=== PATIENT | male | born 1965 | race African-American/Black ===

== ENCOUNTER 2018-02-01 11:21 | Emergency (ER) | payer OTHER ==
[2018-02-01 11:49] VITALS: BP 151/82; PULSE 83; RESP 20; TEMP 98.5
[2018-02-01] MEDS ORDERED: ONDANSETRON 4 MG/2 ML VIAL IVP STA (12:31)
[2018-02-01] MEDS ORDERED: SODIUM CHLORIDE 0.9% 1,000 ML IV STA (12:31)
[2018-02-01] MEDS ORDERED: MORPHINE SULFATE 2 MG/ML SYRINGE IVP STA (12:31)
--- NOTE | 2018-02-01 13:24 | ED ---
Abdominal Pain HPI - General Chief Complaint: Abdominal Pain Stated Complaint: Abd Pain Time Seen by Provider: 02/01/18 11:56 Source: patient, RN notes reviewed Mode of arrival: ambulatory Limitations: no limitations - History of Present Illness Initial Comments: 52-year-old male presented to the emergency Department with chief complaint of abdominal pain. He's been having intermittent problems since morning. Patient denies any diarrhea, constipation, nausea, vomiting, dysuria, hematuria. 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 Patient did have 2 prior colostomies. Patient states that a reversal over 20 years ago. Patient denies any chest pain or shortness of breath. Denies any back pain no flank pain - Related Data Home Medications Medication Instructions Recorded Confirmed No Known Home Medications 02/01/18 02/01/18 Allergies Allergy/AdvReac Type Severity Reaction Status Date / Time tetracycline Allergy Rash/Hives Verified 02/01/18 12:26 ibuprofen [From Motrin] AdvReac Nausea & Verified 02/01/18 12:26 Vomiting Review of Systems ROS Statement: Those systems with pertinent positive or pertinent negative responses have been documented in the HPI. ROS Other: All systems not noted in ROS Statement are negative. Past Medical History Additional Past Medical History / Comment(s): hurshbrug History of Any Multi-Drug Resistant Organisms: None Reported Past Surgical History: Bowel Resection Additional Past Surgical History / Comment(s): abd surgery Past Psychological History: No Psychological Hx Reported Smoking Status: Current every day smoker Past Alcohol Use History: Occasional Past Drug Use History: None Reported General Exam Limitations: no limitations General appearance: alert, in no apparent distress Head exam: Present: atraumatic, normocephalic, normal inspection Respiratory exam: Present: normal lung sounds bilaterally. Absent: respiratory distress, wheezes, rales, rhonchi, stridor Cardiovascular Exam: Present: regular rate, normal rhythm, normal heart sounds. Absent: systolic murmur, diastolic murmur, rubs, gallop, clicks GI/Abdominal exam: Present: soft, tenderness (Mild diffuse), normal bowel sounds , other (Old surgical scars noted). Absent: distended, guarding, rebound, rigid Back exam: Absent: CVA tenderness (R), muscle spasm Course Vital Signs 02/01/18 11:46 Temperature 98.5 F Pulse Rate 83 Respiratory 20 Rate Blood Pressure 151/82 O2 Sat by Pulse 99 Oximetry Medical Decision Making - Medical Decision Making 52-year-old male present emergency Department for abdominal pain. Patient states that he has 3 work and cannot wait any longer. Patient will be discharged AMA. Disposition Clinical Impression: Abdominal pain Disposition: Left Against Medical Advice Condition: Stable Instructions: Abdominal Pain (ED) Referrals: None,Stated [Primary Care Provider] - 1-2 days
== END 2018-02-01 13:28 | disposition left against medical advice (07) ==
LOC: EC 11:21
DX: R10.9 Unspecified abdominal pain (principal); F17.200 Nicotine dependence, unspecified, uncomplicated; Z91.19 Patient's noncompliance with other medical treatment and regimen; Z88.1 Allergy status to other antibiotic agents; Z88.6 Allergy status to analgesic agent
CPT/HCPCS: 99283

== ENCOUNTER 2018-03-04 11:46 | Observation (INO) | payer OTHER ==
[2018-03-04] MEDS ORDERED: ASPIRIN 81 MG PO STA (12:01)
[2018-03-04] MEDS ORDERED: NITROGLYCERIN SL TABS 0.4 MG TAB SUBLINGUAL STA (12:02)
--- NOTE | 2018-03-04 12:09 | ED ---
Chest Pain HPI - General Source: patient, RN notes reviewed Mode of arrival: wheelchair Limitations: no limitations <Ozzie Nelson - Last Filed: 03/04/18 13:43> <Ross Parra - Last Filed: 03/04/18 13:45> - General Chief Complaint: Chest Pain Stated Complaint: CHEST PAIN Time Seen by Provider: 03/04/18 11:58 - History of Present Illness Initial Comments: 52-year-old male presents emergency Department chief, chest pain. Patient states pain started while at work. Patient states it does hurt slightly to move. Patient has an appointment shortness breath this ongoing secondary to some tobacco use. Patient denies any history of hyperlipidemia, hypertension, hyperlipidemia though does not go to physician a regular basis. He has no cardiac history. Patient denies any nausea, vomiting diarrhea constipation no URI symptoms. (Ozzie Nelson) - Related Data Home Medications Medication Instructions Recorded Confirmed No Known Home Medications 02/01/18 03/04/18 Allergies Allergy/AdvReac Type Severity Reaction Status Date / Time tetracycline Allergy Rash/Hives Verified 03/04/18 12:40 ibuprofen [From Motrin] AdvReac Nausea & Verified 03/04/18 12:40 Vomiting Review of Systems ROS Other: All systems not noted in ROS Statement are negative. <Ozzie Nelson - Last Filed: 03/04/18 13:43> ROS Other: All systems not noted in ROS Statement are negative. <Ross Parra - Last Filed: 03/04/18 13:45> ROS Statement: Those systems with pertinent positive or pertinent negative responses have been documented in the HPI. EKG Findings - EKG Comments: EKG Findings:: EKG performed at 12:19 normal sinus rhythm with a rate of 84 ND 170 QS 82 QT/QTC 354/418 <Ozzie Nelson - Last Filed: 03/04/18 13:43> Past Medical History Additional Past Medical History / Comment(s): hurshbrug History of Any Multi-Drug Resistant Organisms: None Reported Past Surgical History: Bowel Resection Additional Past Surgical History / Comment(s): abd surgery Past Psychological History: No Psychological Hx Reported Smoking Status: Current every day smoker Past Alcohol Use History: Occasional Past Drug Use History: None Reported <Ozzie Nelson - Last Filed: 03/04/18 13:43> General Exam Limitations: no limitations General appearance: alert, in no apparent distress Head exam: Present: atraumatic, normocephalic, normal inspection Eye exam: Present: normal appearance, PERRL, EOMI. Absent: scleral icterus, conjunctival injection, periorbital swelling ENT exam: Present: normal exam, mucous membranes moist Neck exam: Present: normal inspection, full ROM. Absent: tenderness, meningismus, lymphadenopathy Respiratory exam: Present: normal lung sounds bilaterally, chest wall tenderness (left anterior). Absent: respiratory distress, wheezes, rales, rhonchi, stridor Cardiovascular Exam: Present: regular rate, normal rhythm, normal heart sounds. Absent: systolic murmur, diastolic murmur, rubs, gallop, clicks GI/Abdominal exam: Present: soft, normal bowel sounds. Absent: distended, tenderness, guarding, rebound, rigid Skin exam: Present: warm, dry, intact, normal color. Absent: rash <Ozzie Nelson - Last Filed: 03/04/18 13:43> Course <Ozzie Nelson - Last Filed: 03/04/18 13:43> <Ross Parra - Last Filed: 03/04/18 13:45> Vital Signs 03/04/18 03/04/18 03/04/18 11:55 12:06 12:24 Temperature 98.2 F Pulse Rate 84 87 Pulse Rate [ 82 Supine] Respiratory 20 18 Rate Blood Pressure 137/81 141/90 O2 Sat by Pulse 99 100 Oximetry 03/04/18 13:00 Temperature Pulse Rate 96 Pulse Rate [ Supine] Respiratory 13 Rate Blood Pressure 141/90 O2 Sat by Pulse 100 Oximetry - Reevaluation(s) Reevaluation #1: 03/04/18 13:45 Patient was reevaluated by myself, Dr. Parra. Patient states he's had some chest discomfort this started while at work couple of hours ago. Patient is near symptom-free at this time. Labs and x-ray reviewed. EKG reviewed. Patient updated on results and plan. Case was discussed in detail with Dr. rogelio espino, who will admit for hospital call. Cardiology will be placed on consult ( Ross Parra) Disposition <Ozzie Nelson - Last Filed: 03/04/18 13:43> <Ross Parra - Last Filed: 03/04/18 13:45> Clinical Impression: Chest pain Disposition: ADMITTED IP TO THIS HOSP Condition: Stable Referrals: None,Stated [Primary Care Provider] - 1-2 days
[2018-03-04 12:46] LABS: Basophils % (A) 0 %; Eosinophils # (A) 0.2 k/uL (0-0.7); Eosinophils % (A) 2 %; HCT 46.1 % (39.0-53.0); HGB 15.9 gm/dL (13.0-17.5); Lymphocytes # (A) 2.1 k/uL (1.0-4.8); Lymphocytes % (A) 20 %; MCH 33.1 pg (25.0-35.0); MCHC 34.4 g/dL (31.0-37.0); MCV 96.1 fL (80.0-100.0); Mean Platelet Volume 7.5; Monocytes # (A) 0.6 k/uL (0-1.0); Monocytes % (A) 6 %; Neutrophils # (A) 7.1 k/uL (1.3-7.7); Neutrophils % (A) 70 %; Platelet Count 176 k/uL (150-450); RDW 13.2 % (11.5-15.5); WBC 10.2 k/uL (3.8-10.6)
[2018-03-04 12:49] LABS: INR 1.1 (<1.2); Partial Thromboplastin Time 24.4 sec (22.0-30.0); Prothrombin Time 10.7 sec (9.0-12.0)
--- NOTE | 2018-03-04 12:55 | XR ---
EXAMINATION TYPE: XR chest 2V DATE OF EXAM: 03/04/2018 COMPARISON: NONE HISTORY: Chest pain TECHNIQUE: Frontal and lateral views of the chest are obtained. FINDINGS: There is no focal air space opacity, pleural effusion, or pneumothorax seen. The cardiac silhouette size is within normal limits. The osseous structures are intact. Minimal multilevel dege nerative changes of the thoracic spine are seen. IMPRESSION: No acute cardiopulmonary process.
[2018-03-04 12:57] LABS: ALT 37 U/L (21-72); AST 37 U/L (17-59); Albumin 4.1 g/dL (3.5-5.0); Alkaline Phosphatase 74 U/L (38-126); Anion Gap 8 mmol/L; Blood Urea Nitrogen 15 mg/dL (9-20); Calcium 9.9 mg/dL (8.4-10.2); Carbon Dioxide 24 mmol/L (22-30); Chloride 106 mmol/L (98-107); Glucose 119 mg/dL (74-99); Lipase 77 U/L (23-300); Magnesium 1.8 mg/dL (1.6-2.3); Potassium 4.4 mmol/L (3.5-5.1); Sodium 138 mmol/L (137-145); Total Bilirubin 0.6 mg/dL (0.2-1.3); Total Protein 7.3 g/dL (6.3-8.2)
[2018-03-04 13:01] LABS: Creatine Kinase 408 U/L (55-170)
[2018-03-04 13:14] LABS: Creatine Kinase MB 2.9 ng/mL (0.0-2.4); Troponin I <0.012 ng/mL (0.000-0.034)
[2018-03-04] MEDS ORDERED: NITROGLYCERIN SL TABS 0.4 MG TAB SUBLINGUAL PRN (13:44)
[2018-03-04] MEDS ORDERED: HEPARIN SODIUM,PORCINE 5,000 UNIT/ML 1 ML VIAL IV ONE (13:44)
[2018-03-04] MEDS ORDERED: HEPARIN SOD,PORK IN 0.45% NACL 25,000 UNIT in 0.45% NACL 1 500ML.BAG IV SCH (13:45)
[2018-03-04] MEDS ORDERED: NALOXONE 0.4 MG/ML 1 ML VIAL IV PRN (15:36)
[2018-03-04] MEDS ORDERED: ONDANSETRON 4 MG/2 ML VIAL IVP PRN (15:36)
[2018-03-04] MEDS ORDERED: ACETAMINOPHEN TAB 325 MG TAB PO PRN (15:36)
[2018-03-04] MEDS ORDERED: HYDROcodone/APAP 5-325MG 1 EACH TAB PO PRN (15:36)
--- NOTE | 2018-03-04 15:48 | P.HPIM ---
History of Present Illness H&P Date: 03/04/18 Chief Complaint: chest pain Patient is a 52-year-old -[place] male with past medical history of Hirschsprung's disease and tobacco abuse who presented to the ER with complaints of chest pain. In the emergency department he underwent an extensive evaluation. Initial EKG showed normal sinus rhythm at a rate of [address]-T wave changes and normal intervals. An initial vital signs he was slightly hypertensive with a blood pressure 141/98. Initial laboratory analysis had a negative troponin but slightly elevated glucose at 119. He was given a dose of aspirin, Nitrol, and a dose of heparin. He is admitted to the observation unit for further monitoring and care. 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 This persisted until he came to the ER and got a dose of nitroglycerin. He describes the pain as retrosternal without radiation. It was associated with intermittent shortness of breath, no nausea, no diaphoresis , no numbness or tingling, no lightheadedness or dizziness, no racing heart. He has never had anything like this before. He has never seen a tax professional in the past. He has not had any stress test or cardiac catheterizations. He does not have a primary care physician currently. He does report that approximately 2 weeks ago he had a cold associated with nasal congestion and rhinorrhea. This has since resolved. He does not take any medications on a chronic basis. He does have a brother who passed myocardial infarction at age 38 however he had a history of cocaine abuse. Review of Systems Pertinent positives and negatives as discussed in HPI, a complete review of systems was performed and all other systems are negative. Past Medical History Additional Past Medical History / Comment(s): Hirschsprung's disease History of Any Multi-Drug Resistant Organisms: None Reported Past Surgical History: Bowel Resection Additional Past Surgical History / Comment(s): abd surgery Past Psychological History: No Psychological Hx Reported Smoking Status: Current every day smoker Past Alcohol Use History: Occasional Past Drug Use History: None Reported - Past Family History family Additional Family Medical History / Comment(s): He reports no family history of congestive heart failure, he had a brother who from myocardial infarction at age 38 however he was using cocaine., no history of [place] and parents or grandparents. Medications and Allergies Home Medications Medication Instructions Recorded Confirmed Type No Known Home Medications 02/01/18 03/04/18 History Allergies Allergy/AdvReac Type Severity Reaction Status Date / Time tetracycline Allergy Rash/Hives Verified 03/04/18 12:40 ibuprofen [From Motrin] AdvReac Nausea & Verified 03/04/18 12:40 Vomiting Physical Exam Osteopathic Statement: *. No significant issues noted on an osteopathic structural exam other than those noted in the History and Physical/Consult. Vitals: Vital Signs Temp Pulse Pulse Pulse Resp BP BP 03/04/18 14:31 97.9 F 66 18 147/78 03/04/18 13:00 96 13 141/90 03/04/18 12:24 87 18 141/90 03/04/18 12:06 82 03/04/18 11:55 98.2 F 84 20 137/81 Pulse Ox 03/04/18 14:31 97 03/04/18 13:00 100 03/04/18 12:24 100 03/04/18 12:06 03/04/18 11:55 99 Intake and Output 03/04/18 03/04/18 03/04/18 06:59 14:59 22:59 Other: Weight 76.657 kg General: non toxic, no distress, appears at stated age, normal weight Derm: no unusual rashes/lesions no unusual ecchymoses, warm, dry Head: atraumatic, normocephalic, symmetric Eyes: EOMI, no lid lag, anicteric sclera, pupils equal round reactive to light ENT: Nose and ears atraumatic, no thrush, no pharyngeal erythema Neck: No thyromegaly, no cervical lymphadenopathy, trachea midline, supple Mouth: no lip lesion, mucus membranes moist Cardiovascular: S1S2 reg, no murmur, positive posterior tibial pulse bilateral, no edema, capillary refill less than 2 seconds Lungs: CTA bilateral, no rhonchi, no rales , no accessory muscle use Abdominal: soft, nontender to palpation, no guarding, no appreciable organomegaly, normal bowel sounds Ext: no gross muscle atrophy, muscle strength 5 out of 5 in all 4 extremities grossly, no contractures, Neuro: CN II-XI grossly intact, light touch intact all 4 extremities, finger to nose within normal limits, Psych: Alert, oriented, appropriate affect Results CBC & Chem 7: 03/04/18 12:15 03/04/18 12:15 Labs: Abnormal Lab Results - Last 24 Hours (Table) 03/04/18 03/04/18 Range/Units 12:15 12:15 Glucose 119 H (74-99) mg/dL Total Creatine Kinase 408 H (55-170) U/L CK-MB (CK-2) 2.9 H (0.0-2.4) ng/mL Comments: EKG is reviewed by myself reveals normal sinus rhythm at a rate of 84, normal axis, normal intervals, and no significant ST-T wave changes Chest x-ray: report reviewed Thrombosis Risk Factor Assmnt - DVT/VTE Prophylaxis DVT/VTE Prophylaxis: Low risk, early ambulation encouraged Assessment and Plan Assessment: Chest pain -Aspirin, serial troponins, telemetry, nothing by mouth after midnight, consult cardiology -When necessary nitroglycerin and when necessary EKG for recurrent chest pain Tobacco abuse -Cessation encouraged -We will avoid nicotine replacement at this point in time Hyperglycemia - Check hemoglobin A1c DVT prophylaxis: SCDs Discussed with: Patient, nursing Anticipated discharge: [address]: Home A total of 45 minutes was spent on the care of this complex patient more than 50 % of the time was spent in counseling and care coordination.
[2018-03-04 17:55] LABS: Creatine Kinase 312 U/L (55-170)
[2018-03-04 18:08] LABS: Creatine Kinase MB 2.4 ng/mL (0.0-2.4); Troponin I <0.012 ng/mL (0.000-0.034)
[2018-03-05 00:34] LABS: Creatine Kinase 289 U/L (55-170)
[2018-03-05 00:47] LABS: Creatine Kinase MB 1.9 ng/mL (0.0-2.4); Troponin I <0.012 ng/mL (0.000-0.034)
[2018-03-05 07:50] VITALS: RESP 18
[2018-03-05] MEDS ORDERED: ASPIRIN 325 MG TAB PO SCH (09:00)
[2018-03-05 09:36] LABS: Mean Platelet Volume 7.4; Platelet Count 178 k/uL (150-450)
[2018-03-05 09:58] LABS: Cholesterol 177 mg/dL (<200); HDL Cholesterol 55 mg/dL (40-60); LDL Cholesterol,Calculated 111 mg/dL (0-99); Triglycerides 56 mg/dL (<150)
--- NOTE | 2018-03-05 11:00 | P.CRDCN ---
History of Present Illness History of present illness: Mr. Mijares is a pleasant 52-year-old -[place] male with no significant history. He smokes 2 cigars a day. He denies history of coronary artery disease, hypertension, dyslipidemia or diabetes mellitus. He has never seen a in classroom tutor for any reason. We've been asked to see him in consultation for chest pain. 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 There is no radiation to the arm, back, neck or jaw. He denies associated shortness of breath, dizziness, palpitations, nausea, vomiting or diaphoresis. The pain persisted for over an hour until coming to the emergency department. He was given sublingual nitroglycerin and the pain subsided. He has had no further symptoms of chest pain since admission. EKG reveals sinus mechanism with no acute ST or T wave abnormalities noted. Chest x-ray is negative for an acute cardiopulmonary process. Laboratory data reviewed, WBC 10.2, hemoglobin 15.9, platelets 178, sodium 138, potassium 4.4, magnesium 1.8, creatinine 1.08, cardiac enzymes negative 3, LDL 111, HDL 55. He takes no daily medications. At the time of my exam: CONSTITUTIONAL: Denies fever. Denies chills. EYES: Denies blurred vision. Denies vision changes. Denies eye pain. EARS, NOSE, MOUTH & THROAT: Denies headache. Denies sore throat. Denies ear pain. CARDIOVASCULAR: Denies chest pain. Denies shortness of breath. Denies orthopnea. Denies PND. Denies palpitations. RESPIRATORY: Denies cough. GASTROINTESTINAL: Denies abdominal pain. Denies diarrhea. Denies constipation. Denies nausea. Denies vomiting. MUSCULOSKELETAL: Denies myalgias. INTEGUMENTARY: Denies pruitis. Denies rash. NEUROLOGIC: Denies numbness. Denies tingling. Denies weakness. PSYCHIATRIC: Denies anxiety. Denies depression. ENDOCRINE: Denies fatigue. Denies weight change. Denies polydipsia. Denies polyurina. GENITOURINARY: Denies burning, hematuria or urgency with micturation. HEMATOLOGIC: Denies history of anemia. Denies bleeding. Blood pressure 126/76 heart rate 53 afebrile maintaining oxygen saturation on room air GENERAL: This is a 52-year-old -[place] male in no apparent distress at the time of my examination. HEENT: Head is atraumatic, normocephalic. Pupils are equal, round. Sclerae anicteric. Conjunctivae are clear. Mucous membranes of the mouth are moist. Neck is supple. There is no jugular venous distention. No carotid bruit is heard. LUNGS: Clear to auscultation no wheezes, rales or rhonchi. No chest wall tenderness is noted on palpation or with deep breathing. HEART: Regular rate and rhythm without murmurs, rubs or gallops. S1 and S2 heard. ABDOMEN: Soft, nontender. Bowel sounds are heard. No organomegaly noted. EXTREMITIES: No evidence of peripheral edema and no calf tenderness noted. VASCULAR: Radial and dorsalis pedis pulses palpated, no evidence of clubbing. NEUROLOGIC: Patient is awake, alert and oriented x3. ASSESSMENT Chest pain, atypical. An acute coronary event has been ruled out with no EKG evidence of ischemia and negative cardiac enzymes. PLAN An acute coronary event has been ruled out with no EKG evidence of ischemia and negative cardiac enzymes. Discontinue heparin infusion. Perform stress echocardiogram and doppler study to assess cardiac structure and function. If stress test is normal he is stable from a cardiac perspective. Cessation of cigar smoking recommended as well as lifestyle modifications for lowering of LDL cholesterol. Follow up with Dr. Lazcano in 2 weeks. Thank you kindly for this consultation. Nurse Practitioner note has been reviewed, I agree with a documented findings and plan of care. Patient was seen and examined. Past Medical History Additional Past Medical History / Comment(s): Hirschsprung's disease History of Any Multi-Drug Resistant Organisms: None Reported Past Surgical History: Bowel Resection Additional Past Surgical History / Comment(s): abd surgery Past Anesthesia/Blood Transfusion Reactions: No Reported Reaction Smoking Status: Current every day smoker - Past Family History Mother Family Medical History: Cancer Additional Family Medical History / Comment(s): Father Additional Family Medical History / Comment(s): -brain anuerysm family Additional Family Medical History / Comment(s): He reports no family history of congestive heart failure, he had a brother who from myocardial infarction at age 38 however he was using cocaine., no history of [place] and parents or grandparents. Medications and Allergies Home Medications Medication Instructions Recorded Confirmed Type No Known Home Medications 02/01/18 03/04/18 History Allergies Allergy/AdvReac Type Severity Reaction Status Date / Time tetracycline Allergy Rash/Hives Verified 03/04/18 12:40 ibuprofen [From Motrin] AdvReac Nausea & Verified 03/04/18 12:40 Vomiting Physical Exam Vitals: Vital Signs Temp Pulse Pulse Pulse Resp BP BP 03/05/18 08:00 53 L 18 03/05/18 07:25 97.9 F 53 L 18 126/76 03/05/18 03:58 16 03/05/18 03:52 97.7 F 66 16 143/80 03/05/18 00:00 98.4 F 71 16 129/79 03/04/18 23:19 16 03/04/18 20:00 98.3 F 81 16 151/73 03/04/18 16:24 03/04/18 14:31 97.9 F 66 18 147/78 03/04/18 13:00 96 13 141/90 03/04/18 12:24 87 18 141/90 03/04/18 12:06 82 03/04/18 11:55 98.2 F 84 20 137/81 Pulse Ox 03/05/18 08:00 03/05/18 07:25 100 03/05/18 03:58 03/05/18 03:52 100 03/05/18 00:00 100 03/04/18 23:19 03/04/18 20:00 99 03/04/18 16:24 98 03/04/18 14:31 97 03/04/18 13:00 100 03/04/18 12:24 100 03/04/18 12:06 03/04/18 11:55 99 Intake and Output 03/04/18 03/05/18 03/05/18 22:59 06:59 14:59 Intake Total 100 Balance 100 Intake: Oral 100 Other: Voiding Method Toilet Toilet Toilet # Voids 1 1 Results 03/05/18 08:58 03/04/18 12:15 Cardiac Enzymes 03/04/18 03/04/18 03/04/18 Range/Units 12:15 12:15 17:24 AST 37 (17-59) U/L CK-MB (CK-2) 2.9 H 2.4 (0.0-2.4) ng/mL Troponin I <0.012 <0.012 (0.000-0.034) ng/mL 03/04/18 Range/Units 23:40 AST (17-59) U/L CK-MB (CK-2) 1.9 (0.0-2.4) ng/mL Troponin I <0.012 (0.000-0.034) ng/mL Coagulation 03/04/18 Range/Units 12:15 PT 10.7 (9.0-12.0) sec APTT 24.4 (22.0-30.0) sec Lipids 03/05/18 Range/Units 08:58 Triglycerides 56 (<150) mg/dL Cholesterol 177 (<200) mg/dL HDL Cholesterol 55 (40-60) mg/dL CBC 03/04/18 03/05/18 Range/Units 12:15 08:58 WBC 10.2 (3.8-10.6) k/uL RBC 4.80 (4.30-5.90) m/uL Hgb 15.9 (13.0-17.5) gm/dL Hct 46.1 (39.0-53.0) % Plt Count 176 178 (150-450) k/uL Comprehensive Metabolic Panel 03/04/18 Range/Units 12:15 Sodium 138 (137-145) mmol/L Potassium 4.4 (3.5-5.1) mmol/L Chloride 106 (98-107) mmol/L Carbon Dioxide 24 (22-30) mmol/L BUN 15 (9-20) mg/dL Creatinine 1.08 (0.66-1.25) mg/dL Glucose 119 H (74-99) mg/dL Calcium 9.9 (8.4-10.2) mg/dL AST 37 (17-59) U/L ALT 37 (21-72) U/L Alkaline Phosphatase 74 (38-126) U/L Total Protein 7.3 (6.3-8.2) g/dL Albumin 4.1 (3.5-5.0) g/dL Current Medications Generic Name Dose Route Start Last Admin Trade Name Freq PRN Reason Stop Dose Admin Acetaminophen 650 mg 03/04/18 15:36 Tylenol Tab PO Q6HR PRN Mild Pain or Fever > 100.5 Hydrocodone Bitart/Acetaminophen 1 each 10/25/18 15:36 [place] 5-325 PO Q4HR PRN Moderate Pain Aspirin 325 mg 03/05/18 09:00 Aspirin PO DAILY JOSE C Naloxone HCl 0.2 mg 03/04/18 15:36 Narcan IV Q2M PRN Opioid Reversal Nitroglycerin 0.4 mg 03/04/18 13:44 Nitrostat SUBLINGUAL Q5M PRN Chest Pain Ondansetron HCl 4 mg 03/04/18 15:36 Zofran IVP Q8HR PRN Nausea And Vomiting Intake and Output 03/04/18 03/05/18 03/05/18 22:59 06:59 14:59 Intake Total 100 Balance 100 Intake: Oral 100 Other: Voiding Method Toilet Toilet Toilet # Voids 1 1 03/05/18 08:58 03/04/18 12:15
[2018-03-05 11:41] VITALS: BP 130/87; PULSE 60; TEMP 97.8
--- NOTE | 2018-03-05 18:21 | P.DS ---
Providers Date of admission: 03/04/18 13:46 Expected date of discharge: 03/05/18 Attending physician: Noelle Bowman DO Consults: 03/04/18 13:44 Consult Physician Urgent Consulting Provider: Vinny Cabezas Consult Reason/Comments: chest pain Do you want consulting provider notified?: Yes Primary care physician: Stated None Hospital Course: Discharge Diagnosis: Patient left AMA and this is a summary of his care Chest pain Tobacco abuse Hyperglycemia Hospital Course: Patient is a 52-year-old -[place] male with past medical history of Hirschsprung's disease and tobacco abuse who presented to the ER with complaints of chest pain. In the emergency department he underwent an extensive evaluation. Initial EKG showed normal sinus rhythm at a rate of [address]-T wave changes and normal intervals. An initial vital signs he was slightly hypertensive with a blood pressure 141/98. Initial laboratory analysis had a negative troponin but slightly elevated glucose at 119. He was given a dose of aspirin, Nitro, and a dose of heparin. He was admitted to the observation unit for further monitoring and care. His troponins remained negative. He was seen by cardiology on the morning of 03/05 and underwent an exercise stressed test. Unfortunately the patient left AGAINST MEDICAL ADVICE prior to results of the stress test being available, I was unable to sepak with the patient prior to him leaving. A total of 10 minutes of time were spent preparing this complex discharge summary . Pertinent Studies: Stress test- results pending Patient Condition at Discharge: Stable Plan - Discharge Summary Discharge Rx Participant: Yes New Discharge Prescriptions: No Action No Known Home Medications Discharge Medication List No Known Home Medications 02/01/18 [History] Follow up Appointment(s)/Referral(s): Josias Lazcano MD [STAFF PHYSICIAN] - 4 Weeks None,Stated [Primary Care Provider] - 1-2 days Discharge Disposition: Left Against Medical Advice
--- NOTE | 2018-03-05 18:37 | ECHOS ---
STRESS ECHOCARDIOGRAM INDICATIONS: Chest pain. MEDICATIONS: None. BASELINE HEART RATE: 71 BASELINE BLOOD PRESSURE: 131/73 MAXIMUM HEART RATE: 164 MAXIMUM BLOOD PRESSURE: 190/86 85% MPHR: 145 100% MPHR: 170 METS: 8.5 MAXIMUM STAGE REACHED: 3 TOTAL EXERCISE TIME: 7:00 CLINICAL INFORMATION: Patient exercised on a Lyndon protocol for 7 minutes, achieving a peak heart rate of 164 beats per minute. Normal blood pressure response to exercise. There was no ECG evidence for ischemia. No arrhythmias were noted. Baseline 2D echo images showed normal LV size and systolic function without segmental wall motion abnormalities. At peak exercise, there was excellent augmentation of overall LV contractility without development of any wall motion abnormalities. At recovery, regional and global LV systolic function remained normal. IMPRESSION: Average exercise capacity. No ECG or echocardiographic evidence for ischemia. The results were called to the nurse on the observation unit. MMSAMARAL / IJN: [id number] /
== END 2018-03-05 14:50 | disposition left against medical advice (07) ==
LOC: EC 11:46 → 1SOBS 13:46
PROVIDERS: ADMIT Internal Medicine; ATTEND Internal Medicine
DX: R07.2 Precordial pain (principal); R06.02 Shortness of breath; R73.9 Hyperglycemia, unspecified; Q43.1 Hirschsprung's disease; I10 Essential (primary) hypertension; Z53.21 Procedure and treatment not carried out due to patient leaving prior to being seen by health care provider; Z88.8 Allergy status to other drugs, medicaments and biological substances; Z88.1 Allergy status to other antibiotic agents; Z81.3 Family history of other psychoactive substance abuse and dependence; F17.290 Nicotine dependence, other tobacco product, uncomplicated; Z90.49 Acquired absence of other specified parts of digestive tract
CPT/HCPCS: 99285 ×2; 36415; 93005; 93351; 80061; 80053; 82550; 82553; 83690; 83735; 84484; 85025; 85049; 85610; 85730; 83036; 71046; G0378 ×2